=== PATIENT | female | born 1935 | race Caucasian/White ===

== ENCOUNTER 2020-01-31 13:20 | Emergency (ER) | payer MEDICARE, MEDICAID, SELFPAY ==
[~2020-01-31] VITALS: Ht 162.6 cm; Wt 72.6 kg
--- NOTE | 2020-01-31 13:20 | NUR ---
Placed in room 7. Placed on shelter monitor, blood pressure machine and pulse oximeter. To gown for exam. Side rails up. Report given to KITTY Jensen.
--- NOTE | 2020-01-31 13:25 | NUR ---
Pt bib EMS from home with c/o generalized weakness and diarrhea x3 days. Pt appears Jaundiced and per family it is new onset. V/S stable, pt is afebrile. Currently resting in bed, will continue to monitor.
--- NOTE | 2020-01-31 13:30 | NUR ---
ER Dr. Cole at bedside examining patient.
--- NOTE | 2020-01-31 13:30 | NUR ---
Radiology at bedside for Ultra sound.
[2020-01-31] MEDS ORDERED: NACL 0.9% 1,000 ML IV ONE (13:45)
[2020-01-31 13:46] VITALS: BP_SYST 101
--- NOTE | 2020-01-31 13:49 | NUR ---
Young werner in [facility] - 01/31/20 at 1352 by [email or web address] Placed in room 7 . Placed on cardiac rehab nurse, blood pressure machine and pulse oximeter. To gown for exam. Side rails up.
--- NOTE | 2020-01-31 13:50 | NUR ---
# 20 gauge angiocath placed to RAC. Use of asceptic technique. Opsite placed over site. Blood return noted. Blood for lab drawn from site. Flushed with 10 cc of normal saline. No evidence of infiltration noted. Patient tolerated well.
--- NOTE | 2020-01-31 14:10 | NUR ---
Pt Daughter called and left contact information for update and emergency. ([phone])
[2020-01-31 14:11] LABS: HEMATOCRIT 27.6 % (36-48); HEMOGLOBIN 9.9 g/dL (12.0-16.0); MEAN CORPUSCULAR HEMOGLOBIN 39 pg (27-31); MEAN CORPUSCULAR HGB CONC 36 % (32-36); MEAN CORPUSCULAR VOLUME 108 fL (79.0-98.0); PLATELET COUNT (AUTO) 533 K/uL (130-430); RED BLOOD CELL COUNT(AUTO) 2.56 MIL/uL (4.2-6.2); RED CELL DISTRIBUTION WIDTH 17.5 % (9.0-15.0); WHITE BLOOD COUNT (AUTO) 8.2 K/uL (4.8-10.8)
[2020-01-31 14:19] LABS: ANION GAP 7 (5-15); CALCIUM 10.3 mg/dL (8.4-11.0); CHLORIDE 96 mmol/L (98-107); GLUCOSE 151 mg/dL (70-99); POTASSIUM 3.6 mmol/L (3.5-5.1); SODIUM SERUM 126 mmol/L (136-145); UREA NITROGEN, BLOOD 37 mg/dL (8-21)
[2020-01-31 14:20] LABS: CREATININE 0.84 mg/dL (0.55-1.30)
[2020-01-31 14:31] LABS: ALANINE AMINOTRANSFERASE 96 U/L (12-78); ALBUMIN 1.6 g/dL (3.4-4.8)
[2020-01-31 14:32] LABS: LACTATE DEHYDROGENASE 142 U/L (81-234)
[2020-01-31 14:38] LABS: INR 1.1 (0.8-1.2); PROTHROMBIN TIME 10.9 SECS (9.5-12.5)
[2020-01-31 14:45] LABS: ATYPICAL LYMPHOCYTES % 0 % (0-0); BAND % (MANUAL) 0 % (0-6); BASOPHILS % (MANUAL) 0 % (0-2); EOSINOPHILS % (MANUAL) 0 % (0-7); LYMPHOCYTES % (MANUAL) 15 % (20-46); MONOCYTES % (MANUAL) 6 % (0-11)
[2020-01-31 15:02] LABS: C-REACTIVE PROTEIN QUANT 4.2 mg/dL (0-0.5)
[2020-01-31 15:21] LABS: ASPARTATE AMINOTRANSFERASE 199 U/L (10-37)
--- NOTE | 2020-01-31 15:35 | NUR ---
Nasal swab obtained to r/o Covid, sample sent to lab. Pt tolerated well.
--- NOTE | 2020-01-31 15:40 | NUR ---
Urine sample collected via straight cath as per MD order. Pt tolerated well, sample sent to lab
[2020-01-31 16:55] LABS: CLARITY/URINE CLOUDY (CLEAR); COLOR,URINE AMBER (YELLOW)
[2020-01-31 16:56] LABS: BILIRUBIN,URINE 3+ (NEGATIVE); BLOOD, URINE 1+ (NEGATIVE); GLUCOSE,URINE NEGATIVE (NEGATIVE); KETONES,URINE NEGATIVE (NEGATIVE); LEUKOCYTE ESTERASE ,URINE 2+ (NEGATIVE); NITRITE, URINE NEGATIVE (NEGATIVE); PROTEIN URINE TRACE (NEGATIVE); UROBILINOGEN,URINE 0.2 (0.2-1.0)
[2020-01-31 17:06] LABS: BACTERIA,URINE MANY /HPF (None Seen); COARSE GRANULAR CASTS,URINE 0-10 /LPF (None Seen); RBC,URINE 0-3 /HPF (0-3); URINE AMORPHOUS PHOSPHATES 3+ /HPF (None Seen)
[2020-01-31 17:07] LABS: MUCUS,URINE None Seen /LPF (None Seen)
[2020-01-31 17:59] VITALS: BP_SYST 107
[2020-01-31] MEDS ORDERED: PIPERACILLIN/TAZOBACTAM 2.25 GM in NS 50 ML IV ONE (18:00)
[2020-01-31] MEDS ORDERED: PIPERACILLIN/TAZOBACTAM 2.25 GM VIAL IV ONE (18:21)
--- NOTE | 2020-01-31 19:08 | NUR ---
Care of patient endorsed to KITTY Melchor. Pt currently waiting in [facility]. No distress noted.
--- NOTE | 2020-01-31 19:15 | NUR ---
Report received from KITTY Jensen for conituation of care.
--- NOTE | 2020-01-31 19:59 | NUR ---
Patient to be transferred to [facility]. Is being transferred due to higher level of care. Receiving facility has accepting physician and available space. ER physician has signed transfer form. Patient or responsible democrat has agreed to transfer and signed form. Patient belongings inventoried and will be sent with patient. Copy of nursing notes, lab reports, EKG, Physicians Orders and X-rays to be sent with patient. Report called to at receiving facility. Receiving physician is Dr Bueno. ambulance service has been called for transfer. ETA is [id number].
== END 2020-01-31 17:59 | disposition short-term general hospital (02) ==
LOC: SED 13:20
DX: D64.9 Anemia, unspecified (principal); K83.1 Obstruction of bile duct; N39.0 Urinary tract infection, site not specified; E87.1 Hypo-osmolality and hyponatremia; G93.41 Metabolic encephalopathy; N18.9 Chronic kidney disease, unspecified; Z20.828 Contact with and (suspected) exposure to other viral communicable diseases
CPT/HCPCS: 36415; 71045; 76700; 80053; 81000; 82140; 82550; 82728; 83605; 83615; 83880; 84484; 85007; 85027; 85384; 85610; 85730; 86140; 87040; 87086; 87426; 93005; 96361; 96365; 99285; J2543; J7030